=== PATIENT | male | born 1960 | race Caucasian/White ===

== ENCOUNTER 2016-12-28 02:24 | Emergency (ER) | payer OTHER ==
[~2016-12-28] VITALS: Ht 185.4 cm; Wt 89.0 kg
[2016-12-28 02:26] VITALS: Ht 185.4 cm; Wt 89.0 kg
[2016-12-28] MEDS ORDERED: FAMOTIDINE 20 MG TAB PO ONE (03:00)
[2016-12-28] MEDS ORDERED: METHYLPREDNISOLONE 125 MG INJ IM ONE (03:00)
[2016-12-28] MEDS ORDERED: DIPHENHYDRAMINE 50 MG INJ IM ONE (03:00)
[2016-12-28] MEDS ORDERED: BEN50 PO (03:11)
[2016-12-28] MEDS ORDERED: PRED50TA PO (03:11)
[2016-12-28] MEDS ORDERED: FAMO-18 PO (03:11)
--- NOTE | 2016-12-28 03:42 | ERD ---
ER Documentation Chief Complaint Date/Time DATE: 12/28/16 TIME: 03:23 Chief Complaint MULTIPLE RASH ON SACRAL, BILATERAL HAND EDEMA, BILATERAL FEET PAIN HPI 56-year-old male presents here in emergency department for complaints of rashes over the body that started today. Patient is complaining of itching all over the body. Patient cannot remember eating something new or different. Patient does not have any family members with the same type of symptoms. Patient did not take any medication to help with symptoms. ROS All systems reviewed and are negative except as per history of present illness. Medications Home Meds Active Scripts Famotidine* (Pepcid*) 20 Mg Tablet, 20 MG PO BID, #60 TAB Prov:MIRTA MARQUEZ READING AIDE 12/28/16 Prednisone* (Prednisone*) 50 Mg Tablet, 50 MG PO DAILY, #5 TAB Prov:MIRTA MARQUEZ READING AIDE 12/28/16 Diphenhydramine Hcl* (Benadryl*) 50 Mg Cap, 50 MG PO Q6H Y for ITCHING/RASH, # 30 CAP Prov:MIRTA MARQUEZ READING AIDE 12/28/16 Allergies Allergies: Coded Allergies: Penicillins (Unverified Allergy, Unknown, 12/28/16) PMhx/Soc History of Surgery: Yes (HEART SURGERY) Hx Alcohol Use: No Hx Substance Use: No Hx Tobacco Use: No Smoking Status: Never smoker FmHx Family History: No coronary disease, No diabetes, No other Physical Exam Vitals Vital Signs Date Time Temp Pulse Resp B/P Pulse Ox O2 Delivery O2 Flow Rate FiO2 12/28/16 02:26 96.9 109 18 122/82 95 Physical Exam GENERAL: The patient is well developed and appropriate for usual state of health, in no apparent distress. CHEST: Clear to auscultation bilaterally. There are no rales, wheezes or rhonchi. HEART: Regular rate and rhythm. No murmurs, clicks, rubs or gallops. No S3 or S4. ABDOMEN: Soft, nontender and nondistended. Good bowel sounds. No rebound or guarding. No gross peritonitis. No gross organomegaly or masses. No Bailey sign or McBurney point tenderness. BACK: No midline or flank tenderness. EXTREMITIES: Equal pulses bilaterally. There is no peripheral clubbing, cyanosis or edema. No focal swelling or erythema. Full range of motion. Grossly neurovascularly intact. NEURO: Alert and oriented. Cranial nerves 2-12 intact. Motor strength in all 4 extremities with 5/5 strength. Sensation grossly intact. Normal speech and gait. SKIN: Maculopapular rash noted all over the body consistent with urticaria. There is no apparent ecchymosis or petechia. The skin is warm and dry. HEMATOLOGIC AND LYMPHATIC: There is no evidence of excessive bruising or lymphedema. No gross cervical, axillary, or inguinal lymphadenopathy. Results 24 hrs Current Medications Medications (Trade) Dose Ordered Sig/Reed Route PRN Reason Start Time Stop Time Status Last Admin Dose Admin Diphenhydramine HCl (Benadryl) 50 mg ONCE ONCE IM 12/28/16 03:00 12/28/16 03:01 DC 12/28/16 03:03 Methylprednisolone Sodium Succinate (Solu-Medrol) 125 mg ONCE ONCE IM 12/28/16 03:00 12/28/16 03:01 DC 12/28/16 03:03 Famotidine (Pepcid) 20 mg ONCE ONCE PO 12/28/16 03:00 12/28/16 03:01 DC 12/28/16 03:03 Benadryl, Solu-Medrol, Pepcid was given here in emergency department for complaint of less than much better afterwards. Procedures/MDM Medical decision making: Patient's symptoms are likely consistent with urticaria. No symptoms of anaphylactic shock no symptoms of angioedema. No symptoms of respiratory distress. Rx was given for Benadryl, Prednisone, Famotidine, was advised to ffup with PMD 2-3 days for reevaluation of symptoms. Patient was advised to return to ER for any worsening symptoms. Departure Diagnosis: Primary Impression: Urticaria Condition: Stable Patient Instructions: MIRTA Mclaughlin NP Dec 28, 2016 03:39
== END 2016-12-28 03:48 | disposition home or self-care (01) ==
LOC: FTE 02:24
DX: L50.9 Urticaria, unspecified (principal)
CPT/HCPCS: J1200; J2930; 96372